=== PATIENT | male | born 1970 | race Caucasian/White ===

== ENCOUNTER 2018-03-26 17:38 | Inpatient (IN) ==
[2018-03-26] MEDS ORDERED: Propofol 1000 mg/100 ml Inj 1,000 MG/100 ML BOTTLE ONE (17:43)
[2018-03-26] MEDS ORDERED: Midazolam Inj 5 MG/ML 1 ML Vial ONE (17:54)
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
[2018-03-26 17:59] LABS: Baso # (Auto) 0.1 th/mm3 (0.0-0.2); Baso % (Auto) 0.9 % (0.0-2.0); Eos # (Auto) 0.2 th/mm3 (0.0-0.4); Eos % (Auto) 2.8 % (0.0-4.0); Hematocrit 42.1 % (39.0-51.0); Hemoglobin 14.8 gm/dL (13.0-17.0); Lymph # (Auto) 2.8 th/mm3 (1.0-4.8); Lymph % (Auto) 32.5 % (9.0-44.0); Mean Corpuscular HGB Conc 35.2 % (32.0-36.0); Mean Corpuscular Hemoglobin 33.7 pg (27.0-34.0); Mean Corpuscular Volume 95.8 fL (80.0-100.0); Mean Platelet Volume 7.5 fL (7.0-11.0); Mono # (Auto) 1.1 th/mm3 (0.0-0.9); Mono % (Auto) 12.6 % (0.0-8.0); Neut # (Auto) 4.4 th/mm3 (1.8-7.7); Neut % (Auto) 51.2 % (16.0-70.0); Platelet Count 205 th/mm3 (150-450); Red Blood Count 4.39 mil/mm3 (4.50-5.90); White Blood Count 8.6 th/mm3 (4.0-11.0)
[2018-03-26] MEDS ORDERED: PROPOFOL IV.SIG ONE (18:00)
[2018-03-26 18:07] LABS: Activated Partial Thrombo Time 25.7 sec (23.4-31.7); Prothrombin Time 10.2 sec (9.8-11.6)
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
[2018-03-26] MEDS ORDERED: HYDROmorphone PF Inj 1 MG/ML Ampul IV.PUSH PRN (18:26)
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
[2018-03-26] MEDS: fentaNYL 10 mcg/mL Premix Drip 2,500 MCG/250 ML BAG IV.SIG PRN (19:00)
[2018-03-26] MEDS: Sod Chloride 0.9% Inj 1,000 ML IV.CONT SCH (19:45)
[2018-03-26] MEDS ORDERED: Sodium Phosphate Inj 30 MMOL in Sodium Chlor 0.9% Inj 250 ML IV.SIG PRN (20:14)
[2018-03-26] MEDS ORDERED: Potassium Chloride 25 MEQ Effervescent Tablet PO PRN (20:14)
[2018-03-26] MEDS ORDERED: Magnesium Sulfate Inj 4 GM in Sodium Chlor 0.9% Inj 92 ML IV.SIG PRN (20:14)
[2018-03-26] MEDS ORDERED: Potassium Phosphate Inj 30 MMOL in Sodium Chlor 0.9% Inj 250 ML IV.SIG PRN (20:14)
[2018-03-26] MEDS ORDERED: Potassium Chlor 40 mEq Premix 40 MEQ/100 ML PIGGYBACK IV.SIG PRN ×2 (20:14)
[2018-03-26] MEDS ORDERED: Magnesium Sulfate Inj 2 GM in Sodium Chlor 0.9% Inj 96 ML IV.SIG PRN (20:14)
[2018-03-26] MEDS ORDERED: Potassium Chlor 20 mEq Premix 20 MEQ/100 ML PIGGYBACK IV.SIG PRN (20:14)
[2018-03-26] MEDS ORDERED: Magnesium Oxide 400 MG Tablet PO PRN (20:14)
[2018-03-26] MEDS ORDERED: Potassium Phosphate 500 MG Soluble Tablet PO PRN ×2 (20:14)
[2018-03-26] MEDS ORDERED: Senna/Docusate Sodium 8.6/50 MG Tablet PO SCH (21:00)
[2018-03-26] MEDS: Propofol 1000 mg/100 ml Inj 1,000 MG/100 ML BOTTLE IV.CONT PRN (21:05)
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
[2018-03-26] MEDS ORDERED: Bupivacaine/Epinephrine 0.5% Inj 50 ML Vial ONE (21:31)
[2018-03-26] MEDS ORDERED: Thrombin Topical Soln 5,000 UNIT Vial TOPICAL ONE (21:33)
[2018-03-26] MEDS ORDERED: Gelatin Size 100 Topical Foam ONE (21:33)
[2018-03-26] MEDS ORDERED: Clindamycin Inj 900 MG/6 ML Vial ONE ×2 (21:37→23:24)
[2018-03-26] MEDS: Famotidine 20 MG Tablet PO SCH (22:00)
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
--- NOTE | 2018-03-27 00:39 | P.PCN ---
Date of procedure: 03/27/18 Pre-op diagnosis: Open depressed left frontal parietal comminuted skull fracture Procedure: Left frontal parietal craniotomy for elevation of a comminuted open depressed skull fracture with evacuation of a small epidural hematoma and repair of a full -thickness scalp laceration 5 cm in length Anesthesia: TIM Surgeon: Ike Beltran Estimated blood loss (mL): 250 Pathology: none sent Condition: stable Disposition: ICU
[2018-03-27] MEDS ORDERED: Bisacodyl 10 MG Supp RECTAL PRN (00:42)
[2018-03-27] MEDS ORDERED: fentaNYL Citrate Inj 100 MCG/2 ML Ampul ONE (00:46)
[2018-03-27 01:35] LABS: Hematocrit 34.4 % (39.0-51.0); Hemoglobin 12.2 gm/dL (13.0-17.0); Mean Corpuscular HGB Conc 35.6 % (32.0-36.0); Mean Corpuscular Hemoglobin 33.5 pg (27.0-34.0); Mean Corpuscular Volume 94.1 fL (80.0-100.0); Mean Platelet Volume 7.5 fL (7.0-11.0); Platelet Count 171 th/mm3 (150-450); Red Blood Count 3.65 mil/mm3 (4.50-5.90); Red Cell Distribution Width 12.7 % (11.6-17.2); White Blood Count 10.2 th/mm3 (4.0-11.0)
[2018-03-27 01:40] LABS: ABG Base Excess -1.9 mmol/L (-2-2); ABG PCO2 39 mmHg (38-42); ABG PO2 133 mmHg (61-120)
[2018-03-27] MEDS: Oral Hygiene Kit OROPHARYNG SCH ×4 (01:56→17:42)
[2018-03-27] MEDS: ceFAZolin 1 GM Premix Inj 1 GM/50 ML PIGGYBACK IV.SIG SCH ×3 (01:56→17:42)
[2018-03-27 02:02] LABS: Calcium 7.3 mg/dL (8.5-10.1); Carbon Dioxide 25.7 meq/L (21.0-32.0); Potassium 4.3 meq/L (3.5-5.1)
[2018-03-27 02:08] LABS: Albumin 3.4 g/dL (3.4-5.0); Calcium-Albumin Corrected 7.8 mg/dL (8.5-10.1)
[2018-03-27] MEDS ORDERED: Chlorhexidine Gluconate 2% 1 Pack (2 Cloths) TOPICAL PRN (04:00)
[2018-03-27] MEDS: Chlorhexidine Gluconate 2% 1 Pack (2 Cloths) TOPICAL SCH (04:46)
[2018-03-27] MEDS: Sod Chloride 0.9% Inj 1,000 ML IV.CONT SCH ×2 (04:47→17:42)
[2018-03-27] MEDS: Propofol 1000 mg/100 ml Inj 1,000 MG/100 ML BOTTLE IV.CONT PRN (04:48)
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
[2018-03-27 05:42] LABS: ABG PCO2 44 mmHg (38-42); ABG PO2 90 mmHg (61-120)
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
[2018-03-27 06:08] LABS: Baso % (Auto) 0.4 % (0.0-2.0); Eos # (Auto) 0.1 th/mm3 (0.0-0.4); Eos % (Auto) 1.5 % (0.0-4.0); Hematocrit 34.3 % (39.0-51.0); Hemoglobin 11.9 gm/dL (13.0-17.0); Lymph % (Auto) 10.3 % (9.0-44.0); Mean Corpuscular HGB Conc 34.8 % (32.0-36.0); Mean Corpuscular Hemoglobin 33.2 pg (27.0-34.0); Mean Corpuscular Volume 95.4 fL (80.0-100.0); Mean Platelet Volume 8.3 fL (7.0-11.0); Mono # (Auto) 1.1 th/mm3 (0.0-0.9); Mono % (Auto) 11.4 % (0.0-8.0); Neut # (Auto) 7.5 th/mm3 (1.8-7.7); Neut % (Auto) 76.4 % (16.0-70.0); Platelet Count 161 th/mm3 (150-450); Red Cell Distribution Width 12.9 % (11.6-17.2); White Blood Count 9.8 th/mm3 (4.0-11.0)
[2018-03-27 06:15] LABS: Albumin 3.3 g/dL (3.4-5.0); Anion Gap 6 meq/L (5-15); Aspartate Aminotransferase 28 U/L (15-37); Blood Urea Nitrogen 8 mg/dL (7-18); Calcium 7.6 mg/dL (8.5-10.1); Carbon Dioxide 25.3 meq/L (21.0-32.0); Chloride 108 meq/L (98-107); Glomerular Filtration Rate 87 mL/min (>89); Glucose,Random 90 mg/dL (74-106); Potassium 4.1 meq/L (3.5-5.1); Sodium 139 meq/L (136-145)
[2018-03-27 06:16] LABS: Alanine Aminotransferase 24 U/L (12-78)
[2018-03-27 06:18] LABS: Alkaline Phosphatase 52 U/L (45-117); Total Protein 6.1 g/dL (6.4-8.2)
[2018-03-27] MEDS: fentaNYL 10 mcg/mL Premix Drip 2,500 MCG/250 ML BAG IV.SIG PRN ×2 (06:38→21:15)
[2018-03-27] MEDS ORDERED: Midazolam Inj 5 MG/ML 1 ML Vial IV.PUSH ONE (08:30)
[2018-03-27] MEDS: Senna/Docusate Sodium 8.6/50 MG Tablet PO SCH ×2 (08:46→20:24)
[2018-03-27] MEDS: Famotidine 20 MG Tablet PO SCH ×2 (08:46→20:23)
[2018-03-27] MEDS: Chlorhexidine 0.12% Oral Kit 15 ML UDC OROPHARYNG SCH ×2 (08:47→20:24)
[2018-03-27] MEDS ORDERED: Albumin Human 5% Inj 500 ML IV.SIG ONE (09:00)
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
[2018-03-27] MEDS: Midazolam 100 MG/100 ML Inj 100 MG/100 ML BAG IV.CONT PRN (09:30)
[2018-03-27] MEDS ORDERED: Sod Chloride 0.9% Inj 1,000 ML IV.SIG ONE ×2 (09:38→11:00)
[2018-03-27] MEDS: Multivitamin Inj 10 ML, Thiamine Inj 100 MG, Folic Acid Inj 1 MG in Sodium Chlor 0.9% I... IV.SIG SCH (12:16)
--- NOTE | 2018-03-27 12:30 | P.PNNS ---
Subjective Interval history: The patient is stable following left frontal parietal craniotomy for elevation of a depressed skull fracture and repair by scalp laceration Physical Exam Vital signs: Vital Signs 03/26/18 18:32 03/26/18 18:50 03/26/18 19:42 Temperature 98.6 F Pulse Rate 88 78 Respiratory Rate 27 H 16 Blood Pressure Pulse Oximetry 100 100 03/26/18 19:45 03/26/18 19:50 03/26/18 19:55 Temperature 98.6 F 98.8 F 98.8 F Pulse Rate 76 76 77 Respiratory Rate 16 16 16 Blood Pressure 146/94 H 143/93 H 142/96 H Pulse Oximetry 100 100 100 03/26/18 20:00 03/26/18 20:05 03/26/18 20:10 Temperature 98.8 F 98.8 F Pulse Rate 76 76 76 Respiratory Rate 16 16 16 Blood Pressure 143/96 H 141/94 H 139/94 H Pulse Oximetry 100 100 100 03/26/18 20:15 03/26/18 20:20 03/26/18 20:25 Temperature 98.8 F 98.8 F 98.8 F Pulse Rate 75 74 73 Respiratory Rate 16 16 16 Blood Pressure 141/95 H 139/94 H 149/96 H Pulse Oximetry 100 100 100 03/26/18 20:29 03/26/18 20:30 03/26/18 20:35 Temperature Pulse Rate 74 76 Respiratory Rate 16 16 16 Blood Pressure 142/96 H 140/89 Pulse Oximetry 100 100 100 03/26/18 20:40 03/26/18 20:45 03/26/18 20:50 Temperature Pulse Rate 77 76 75 Respiratory Rate 16 16 16 Blood Pressure 137/88 135/90 136/87 Pulse Oximetry 100 100 100 03/26/18 20:55 03/26/18 21:00 03/26/18 21:05 Temperature 98.8 F 98.8 F Pulse Rate 75 75 75 Respiratory Rate 16 16 16 Blood Pressure 131/87 131/88 134/89 Pulse Oximetry 100 100 100 03/26/18 21:10 03/26/18 21:15 03/27/18 00:27 Temperature Pulse Rate 75 94 H 86 Respiratory Rate Blood Pressure 136/86 175/101 H Pulse Oximetry 100 100 100 03/27/18 00:30 03/27/18 00:45 03/27/18 00:54 Temperature Pulse Rate 84 93 H 95 H Respiratory Rate 16 16 Blood Pressure 118/72 Pulse Oximetry 100 100 100 03/27/18 01:00 03/27/18 01:15 03/27/18 01:30 Temperature 100.8 F H Pulse Rate 95 H 95 H 94 H Respiratory Rate 16 16 16 Blood Pressure 120/73 123/80 Pulse Oximetry 100 100 100 03/27/18 01:45 03/27/18 02:00 03/27/18 02:30 Temperature 100.8 F H 100.6 F H Pulse Rate 97 H 96 H 93 H Respiratory Rate 16 16 16 Blood Pressure 106/66 106/65 Pulse Oximetry 99 98 100 03/27/18 03:00 03/27/18 03:30 03/27/18 03:36 Temperature 100.8 F H 100.8 F H Pulse Rate 90 98 H Respiratory Rate 16 32 H 18 Blood Pressure 108/69 142/80 H Pulse Oximetry 100 98 100 03/27/18 03:39 03/27/18 04:00 03/27/18 04:30 Temperature 100.9 F H 100.9 F H Pulse Rate 100 H 101 H 97 H Respiratory Rate 19 17 16 Blood Pressure 111/69 109/62 Pulse Oximetry 100 100 03/27/18 05:00 03/27/18 05:30 03/27/18 06:00 Temperature 100.6 F H 100.4 F H Pulse Rate 95 H 92 H 92 H Respiratory Rate 16 16 98 H Blood Pressure 102/66 106/62 Pulse Oximetry 100 100 100 03/27/18 06:01 03/27/18 06:31 03/27/18 07:00 Temperature 100.4 F H 100.2 F H Pulse Rate 87 88 79 Respiratory Rate 16 16 Blood Pressure 105/66 92/58 L Pulse Oximetry 100 99 100 03/27/18 07:01 03/27/18 07:15 03/27/18 07:31 Temperature 100.2 F H Pulse Rate 78 96 H Respiratory Rate 16 16 Blood Pressure 96/54 L 124/66 Pulse Oximetry 100 100 97 03/27/18 07:44 03/27/18 08:00 03/27/18 08:01 Temperature 100.4 F H Pulse Rate 91 H 89 87 Respiratory Rate 16 16 Blood Pressure 103/58 L Pulse Oximetry 100 100 03/27/18 08:06 12/16/18 08:08 03/27/18 08:31 Temperature Pulse Rate 87 105 H Respiratory Rate 16 16 16 Blood Pressure 94/50 L Pulse Oximetry 100 95 03/27/18 09:00 03/27/18 09:01 03/27/18 09:31 Temperature 100.0 F H 100.0 F H 100.0 F H Pulse Rate 88 87 98 H Respiratory Rate 16 16 16 Blood Pressure 97/59 L 107/57 L Pulse Oximetry 98 99 96 03/27/18 10:00 03/27/18 10:01 03/27/18 10:31 Temperature 99.7 F H 99.7 F H 99.5 F Pulse Rate 89 89 84 Respiratory Rate 16 16 16 Blood Pressure 107/56 L 98/55 L Pulse Oximetry 100 100 99 03/27/18 11:00 03/27/18 11:28 Temperature 99.5 F Pulse Rate 79 Respiratory Rate 16 16 Blood Pressure Pulse Oximetry 100 100 Intake & Output 03/26/18 03/27/18 03/27/18 18:59 06:59 18:59 Intake Total 2209 / 2209 2855 / 2855 Output Total 860 / 860 Balance 1349 / 1349 2855 / 2855 Weight 80 kg 86 kg Intake: IV 1209 / 1209 2855 / 2855 Diprivan 1000 mg/100 ml Inj 1, 100 / 100 100 / 100 000 mg In 100 ml @ 5 MCG/KG/MIN 2.4 mls/hr IV.CONT TITRATE PRN Rx#:[id number] NS Inj 1,000 ML @ 100 mls/hr IV 700 / 700 .CONT .Q10H [facility] Rx#:[id number] Alburx 5% Inj 500 ML @ 250 mls/ 500 / 500 hr IV.SIG ONCE ONE Rx#:[id number] Diprivan 1000 mg/100 ml Inj 40 4 / 4 mg In 4 ml @ 120 mls/hr IV.SIG ONCE ONE Rx#:[id number] NS Inj 1,000 ML @ Wide Open IV. 1999 SIG BOLUS ONE Rx#:[id number] Ancef 1 GM Premix Inj 1 gm In 50 / 50 50 / 50 50 ml @ 150 mls/hr IV.SIG Q8H [facility] Rx#:[id number] fentaNYL 10 mcg/mL Premix Drip 250 / 250 2,500 mcg In 250 ml @ 50 MCG/HR 5 mls/hr IV.SIG TITRATE PRN Rx #:[id number] Keppra Inj 500 MG In NS Inj 100 105 / 105 105 / 105 ML @ 400 mls/hr IV.SIG Q12H [facility] Rx#:[id number] Anesthesia Amount 1000 / 1000 Output: Estimated Blood Loss 200 / 200 Urine Amount (Catheter) 400 / 400 Indwelling Urethral Catheter 400 / 400 Gastric Drainage 150 / 150 Orogastric Tube 150 / 150 Wound Drainage 110 / 110 # 1 Left Head 110 / 110 Other: Weight On Admission 80 kg - Routine Neurological Exam The patient is lying in bed. He is intubated on a ventilator with spontaneous respirations. He has been sedated for agitation. According to the nurse he opens his eyes and follow some commands. He has attempted to sit up and get out of bed. His pupils are equally round and reactive to light. His gaze is conjugate. Corneal reflexes are present bilaterally. Gag reflex is present. Best motor response finds him to move all 4 extremities spontaneously in a noxious stimuli. The dressing is dry and the subgaleal drain remains in place. Follow-up postoperative CT scan of the head is stable there are postoperative changes. There is increase in the left frontal hemorrhagic brain contusion or small intracerebral hemorrhage with some mild surrounding edema. There is some subarachnoid hemorrhage noted as well as intraventricular hemorrhage noted. There is no sign of subdural hematoma or epidural hematoma. There is no hydrocephalus. 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 Code(s): S02.91XB - Unspecified fracture of skull, initial encounter for open fracture; S06.9X9A - Unspecified intracranial injury with loss of consciousness of unspecified duration, initial encounter Status: Acute Qualifiers: Encounter type: initial encounter Qualified Code(s): S02.91XB - Unspecified fracture of skull, initial encounter for open fracture; S06.9X9A - Unspecified intracranial injury with loss of consciousness of unspecified duration, initial encounter - Plan At this point the patient can be weaned from the ventilator as tolerated and extubated when deemed appropriate by the trauma team. He certainly require aggressive rehabilitation and should be mobilized when able. I would continue the present management. The patient will be managed by the trauma service as per TBI guidelines and protocol. I would continue her Keppra antiseizure prophylaxis for 7 days and if no seizures postoperatively I would discontinue the Keppra. I would begin VTE pharmacological prophylaxis, if it has not already been initiated. I discussed his clinical situation and hospital course with his significant other at the bedside. Neurosurgery will follow.
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
[2018-03-27] MEDS: Enoxaparin Inj 40 MG/0.4 ML Syringe SQ SCH (14:00)
[2018-03-28] MEDS: Oral Hygiene Kit OROPHARYNG SCH ×4 (00:36→19:47)
[2018-03-28] MEDS: Sod Chloride 0.9% Inj 1,000 ML IV.CONT SCH ×2 (00:37→17:51)
[2018-03-28] MEDS: Midazolam 100 MG/100 ML Inj 100 MG/100 ML BAG IV.CONT PRN (00:42)
[2018-03-28 04:02] LABS: Baso % (Auto) 0.3 % (0.0-2.0); Eos # (Auto) 0.1 th/mm3 (0.0-0.4); Eos % (Auto) 0.9 % (0.0-4.0); Hematocrit 24.8 % (39.0-51.0); Hemoglobin 8.7 gm/dL (13.0-17.0); Lymph % (Auto) 14.9 % (9.0-44.0); Mean Corpuscular HGB Conc 35.2 % (32.0-36.0); Mean Corpuscular Hemoglobin 33.9 pg (27.0-34.0); Mean Corpuscular Volume 96.4 fL (80.0-100.0); Mono # (Auto) 0.9 th/mm3 (0.0-0.9); Mono % (Auto) 13.2 % (0.0-8.0); Neut # (Auto) 4.8 th/mm3 (1.8-7.7); Neut % (Auto) 70.7 % (16.0-70.0); Platelet Count 125 th/mm3 (150-450); Red Blood Count 2.57 mil/mm3 (4.50-5.90); Red Cell Distribution Width 13.1 % (11.6-17.2); White Blood Count 6.9 th/mm3 (4.0-11.0)
--- NOTE | 2018-03-28 04:31 | XR ---
EXAM DATE: 03/28/2018 4:06 AM EST AGE/SEX: 48 years / Male INDICATIONS: Shortness of breath. CLINICAL DATA: This is the patient's subsequent encounter. Patient reports that signs and symptoms h ave been present for 2 days and indicates a pain score of Nonresponsive. MEDICAL/SURGICAL HISTORY: . Smoker. Left frontoparietal comminuted fracture. Craniotomy. COMPARISON: [facility] [place]ST 1V SINGLE AP, 03/27/2018. . FINDINGS: ET tube tip well above the rajan. Gastric tube traverses the [id number]. There are some patchy ar eas of opacity in the medial left lower lobe with loss of delineation of bronchopulmonary markings bu t with good delineation of the left hemidiaphragm. The right lung is clear. No blunting of the costop hrenic angles. CONCLUSION: Interval development of some patchy areas of nonconsolidative infiltrate medial left lower lung. Electronically signed by: Reinier Menezes MD Board Certified Radiologist 03/28/2018 4:29 AM EST
[2018-03-28 04:35] LABS: Alanine Aminotransferase 17 U/L (12-78); Albumin 2.9 g/dL (3.4-5.0); Alkaline Phosphatase 41 U/L (45-117); Anion Gap 12 meq/L (5-15); Aspartate Aminotransferase 21 U/L (15-37); Blood Urea Nitrogen 6 mg/dL (7-18); Calcium 7.4 mg/dL (8.5-10.1); Carbon Dioxide 19.2 meq/L (21.0-32.0); Chloride 113 meq/L (98-107); Glomerular Filtration Rate Greater Than 89 mL/min (>89); Glucose,Random 77 mg/dL (74-106); Potassium 3.7 meq/L (3.5-5.1); Sodium 144 meq/L (136-145); Total Protein 5.4 g/dL (6.4-8.2)
[2018-03-28] MEDS: Chlorhexidine Gluconate 2% 1 Pack (2 Cloths) TOPICAL SCH (04:42)
[2018-03-28 05:35] LABS: ABG PCO2 31 mmHg (38-42); ABG PO2 116 mmHg (61-120)
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
[2018-03-28] MEDS: Famotidine 20 MG Tablet PO SCH ×2 (11:32→20:00)
[2018-03-28] MEDS: Senna/Docusate Sodium 8.6/50 MG Tablet PO SCH ×2 (11:32→20:00)
[2018-03-28] MEDS: Chlorhexidine 0.12% Oral Kit 15 ML UDC OROPHARYNG SCH ×2 (11:33→19:53)
[2018-03-28] MEDS: Enoxaparin Inj 40 MG/0.4 ML Syringe SQ SCH (11:33)
[2018-03-28] MEDS: Dexmedetomidine Inj 200 MCG in Sodium Chlor 0.9% Inj 48 ML IV.CONT PRN ×4 (11:34→23:57)
[2018-03-28] MEDS: Multivitamin Inj 10 ML, Thiamine Inj 100 MG, Folic Acid Inj 1 MG in Sodium Chlor 0.9% I... IV.SIG SCH (11:45)
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
--- NOTE | 2018-03-28 18:32 | P.PNNS ---
Subjective Interval history: The patient is stable postoperative day #1. He remains intubated on a ventilator and off sedation is quite agitated. Physical Exam Vital signs: Vital Signs 03/27/18 18:31 03/27/18 19:00 03/27/18 19:01 Temperature 100.4 F H 100.4 F H 100.4 F H Pulse Rate 77 76 76 Respiratory Rate 16 16 16 Blood Pressure 111/58 L 110/60 Pulse Oximetry 100 100 100 03/27/18 19:31 03/27/18 20:00 03/27/18 20:01 Temperature 100.4 F H 100.6 F H Pulse Rate 79 85 85 Respiratory Rate 16 16 16 Blood Pressure 101/57 L 101/57 L Pulse Oximetry 100 100 100 03/27/18 20:31 03/27/18 20:48 03/27/18 20:49 Temperature Pulse Rate 82 79 Respiratory Rate 16 16 16 Blood Pressure 101/59 L Pulse Oximetry 100 98 03/27/18 21:00 03/27/18 21:01 03/27/18 21:31 Temperature 100.6 F H 100.4 F H Pulse Rate 74 76 73 Respiratory Rate 16 16 16 Blood Pressure 105/57 L 111/61 Pulse Oximetry 100 100 100 03/27/18 22:00 03/27/18 22:01 03/27/18 22:31 Temperature 100.6 F H 100.6 F H Pulse Rate 74 74 75 Respiratory Rate 16 16 16 Blood Pressure 107/60 107/60 Pulse Oximetry 100 100 100 03/27/18 23:00 03/27/18 23:01 03/27/18 23:31 Temperature 100.6 F H 100.6 F H Pulse Rate 74 74 75 Respiratory Rate 16 16 16 Blood Pressure 113/62 108/59 L Pulse Oximetry 100 100 100 03/27/18 23:35 03/28/18 00:00 03/28/18 00:01 Temperature 100.6 F H Pulse Rate 76 76 Respiratory Rate 16 16 16 Blood Pressure 107/59 L Pulse Oximetry 100 100 100 03/28/18 00:31 18 01:00 03/28/18 01:01 Temperature 100.8 F H Pulse Rate 73 75 75 Respiratory Rate 16 16 16 Blood Pressure 105/57 L 104/57 L Pulse Oximetry 100 99 99 03/28/18 01:31 03/28/18 02:00 03/28/18 02:01 Temperature 100.4 F H Pulse Rate 74 72 72 Respiratory Rate 16 16 16 Blood Pressure 112/59 L 111/61 Pulse Oximetry 100 100 100 03/28/18 02:31 03/28/18 03:00 03/28/18 03:01 Temperature 100.0 F H Pulse Rate 73 72 73 Respiratory Rate 16 16 16 Blood Pressure 105/59 L 106/59 L Pulse Oximetry 100 100 100 03/28/18 03:31 03/28/18 03:47 03/28/18 03:48 Temperature Pulse Rate 71 71 Respiratory Rate 16 16 16 Blood Pressure 110/60 Pulse Oximetry 100 100 03/28/18 04:00 03/28/18 04:01 03/28/18 04:31 Temperature 99.9 F H Pulse Rate 74 73 74 Respiratory Rate 20 20 19 Blood Pressure 105/59 L 106/56 L Pulse Oximetry 100 100 100 03/28/18 05:00 03/28/18 05:01 03/28/18 06:00 Temperature 99.7 F H 99.1 F Pulse Rate 71 73 70 Respiratory Rate 20 19 19 Blood Pressure 106/56 L Pulse Oximetry 100 100 100 03/28/18 07:00 03/28/18 08:00 03/28/18 09:00 Temperature 99.1 F 99.0 F 99.0 F Pulse Rate 70 68 67 Respiratory Rate 20 19 20 Blood Pressure Pulse Oximetry 100 100 100 03/28/18 10:00 03/28/18 10:04 03/28/18 11:00 Temperature 99.5 F 99.5 F Pulse Rate 73 73 72 Respiratory Rate 22 17 16 Blood Pressure Pulse Oximetry 100 100 100 03/28/18 12:00 03/28/18 12:25 03/28/18 13:00 Temperature 99.3 F 100.2 F H Pulse Rate 70 96 H Respiratory Rate 16 18 15 Blood Pressure Pulse Oximetry 100 100 94 L 03/28/18 14:00 03/28/18 15:00 03/28/18 15:33 Temperature 100.2 F H 100.0 F H Pulse Rate 75 75 78 Respiratory Rate 20 16 17 Blood Pressure Pulse Oximetry 95 98 98 03/28/18 16:00 03/28/18 17:00 03/28/18 18:00 Temperature 100.8 F H 100.8 F H 102.0 F H Pulse Rate 76 71 72 Respiratory Rate 18 12 13 Blood Pressure Pulse Oximetry 100 99 98 Intake & Output 03/27/18 03/28/18 03/28/18 18:59 06:59 18:59 Intake Total 4066.2 / 4066.2 2445 / 2445 255 / 255 Output Total 1150 / 1150 1100 / 1100 1240 / 1240 Balance 2916.2 / 2916.2 1345 / 1345 -985 / -985 Weight 88.8 kg Intake: IV 4066.2 / 4066.2 2445 / 2445 155 / 155 Precedex Inj 200 MCG In NS Inj 50 / 50 48 ML @ 0.2 MCG/KG/HR 4.44 mls/ hr IV.CONT TITRATE PRN Rx#: [id number] Versed Inj 100 mg In 100 ml @ 2 100 / 100 MG/HR 2 mls/hr IV.CONT TITRATE PRN Rx#:[id number] Diprivan 1000 mg/100 ml Inj 1, 100 / 100 000 mg In 100 ml @ 5 MCG/KG/MIN 2.4 mls/hr IV.CONT TITRATE PRN Rx#:[id number] NS Inj 1,000 ML @ 100 mls/hr IV 650 / 650 1999 .CONT .Q10H [facility] Rx#:[id number] Alburx 5% Inj 500 ML @ 250 mls/ 500 / 500 hr IV.SIG ONCE ONE Rx#:[id number] MVI-12 Inj 10 ML Thiamine Inj 511.2 / 511.2 100 MG Folvite Inj 1 MG In NS Inj 500 ML @ 127.8 mls/hr IV. SIG DAILY [facility] Rx#:[id number] NS Inj 1,000 ML @ Wide Open IV. 1999 SIG BOLUS ONE Rx#:[id number] Ancef 1 GM Premix Inj 1 gm In 100 / 100 50 ml @ 150 mls/hr IV.SIG Q8H [facility] Rx#:[id number] fentaNYL 10 mcg/mL Premix Drip 240 / 240 0 / 0 2,500 mcg In 250 ml @ 50 MCG/HR 5 mls/hr IV.SIG TITRATE PRN Rx #:[id number] Keppra Inj 500 MG In NS Inj 100 105 / 105 105 / 105 105 / 105 ML @ 400 mls/hr IV.SIG Q12H [facility] Rx#:[id number] Water Bolus Amount 100 / 100 Output: Urine Amount (Catheter) 1000 / 1000 900 / 900 850 / 850 Indwelling Urethral Catheter 1000 / 1000 900 / 900 850 / 850 Gastric Drainage 50 / 50 150 / 150 350 / 350 Orogastric Tube 50 / 50 150 / 150 350 / 350 Wound Drainage 100 / 100 50 / 50 40 / 40 # 1 Left Head 100 / 100 50 / 50 40 / 40 Other: # Bowel Movements 0 - Routine Neurological Exam The patient remains intubated on a ventilator with spontaneous respirations. He is sedated for agitation and as sedation is weaned he becomes more responsive. He opens his eyes. He correctly follows commands and moves all 4 extremities. Pupils are equally round reactive light. Corneal reflexes are present. Gag reflex is present. Best motor response finds him to withdraw all 4 extremities spontaneously in a noxious stimuli. The dressing remains dry and intact. 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 Code(s): S02.91XB - Unspecified fracture of skull, initial encounter for open fracture; S06.9X9A - Unspecified intracranial injury with loss of consciousness of unspecified duration, initial encounter Status: Acute Qualifiers: Encounter type: initial encounter Qualified Code(s): S02.91XB - Unspecified fracture of skull, initial encounter for open fracture; S06.9X9A - Unspecified intracranial injury with loss of consciousness of unspecified duration, initial encounter - Plan March 27, 2018 At this point the patient can be weaned from the ventilator as tolerated and extubated when deemed appropriate by the trauma team. He certainly require aggressive rehabilitation and should be mobilized when able. I would continue the present management. The patient will be managed by the trauma service as per TBI guidelines and protocol. I would continue her Keppra antiseizure prophylaxis for 7 days and if no seizures postoperatively I would discontinue the Keppra. I would begin VTE pharmacological prophylaxis, if it has not already been initiated. I discussed his clinical situation and hospital course with his significant other at the bedside. Neurosurgery will follow. March 28, 2018 The patient is essentially stable one day following a left frontal parietal craniotomy for elevation of a depressed skull fracture and repair of a scalp laceration. The critical care service is attempting to wean the patient from the ventilator slowly. We will continue the present management and the patient will require mobilization and an extensive course of rehabilitation. Neurosurgery will follow.
[2018-03-29] MEDS: Oral Hygiene Kit OROPHARYNG SCH ×4 (00:57→18:13)
--- NOTE | 2018-03-29 04:05 | XR ---
EXAM DATE: 03/29/2018 3:52 AM EST AGE/SEX: 48 years / Male INDICATIONS: Respiratory distress. CLINICAL DATA: This is the patient's subsequent encounter. Patient reports that signs and symptoms h ave been present for 3 days and indicates a pain score of Nonresponsive. MEDICAL/SURGICAL HISTORY: . Smoker. Left frontoparietal fracture. Craniotomy. COMPARISON: [facility] – [place], CHEST 1V SINGLE AP, 03/28/2018. . FINDINGS: ET tube tip well above the rajan. Gastric tube tip and side-port project within the stomach. Increas ing consolidation in the left lower lung with loss of delineation of the medial one third of the left hemidiaphragm and air bronchograms in the retrocardiac region. The right lung is clear. CONCLUSION: Increasing consolidation in the left lower lobe. Electronically signed by: Reinier Menezes MD Board Certified Radiologist 03/29/2018 4:04 AM EST
[2018-03-29] MEDS: fentaNYL 10 mcg/mL Premix Drip 2,500 MCG/250 ML BAG IV.SIG PRN (05:20)
[2018-03-29] MEDS: Dexmedetomidine Inj 200 MCG in Sodium Chlor 0.9% Inj 48 ML IV.CONT PRN (05:22)
[2018-03-29 05:51] LABS: ABG Base Excess -3.2 mmol/L (-2-2); ABG PCO2 40 mmHg (38-42); ABG PO2 124 mmHg (61-120)
[2018-03-29 06:01] LABS: Baso % (Auto) 0.5 % (0.0-2.0); Eos # (Auto) 0.1 th/mm3 (0.0-0.4); Hematocrit 28.8 % (39.0-51.0); Hemoglobin 9.9 gm/dL (13.0-17.0); Lymph # (Auto) 0.8 th/mm3 (1.0-4.8); Lymph % (Auto) 16.2 % (9.0-44.0); Mean Corpuscular HGB Conc 34.4 % (32.0-36.0); Mean Corpuscular Hemoglobin 33.4 pg (27.0-34.0); Mean Corpuscular Volume 97.2 fL (80.0-100.0); Mean Platelet Volume 7.7 fL (7.0-11.0); Mono # (Auto) 0.6 th/mm3 (0.0-0.9); Mono % (Auto) 11.5 % (0.0-8.0); Neut # (Auto) 3.4 th/mm3 (1.8-7.7); Neut % (Auto) 69.8 % (16.0-70.0); Platelet Count 118 th/mm3 (150-450); Red Blood Count 2.97 mil/mm3 (4.50-5.90); White Blood Count 4.9 th/mm3 (4.0-11.0)
[2018-03-29] MEDS: Chlorhexidine Gluconate 2% 1 Pack (2 Cloths) TOPICAL SCH (06:29)
[2018-03-29] MEDS: Sod Chloride 0.9% Inj 1,000 ML IV.CONT SCH (06:33)
[2018-03-29 06:35] LABS: Alanine Aminotransferase 18 U/L (12-78); Albumin 2.5 g/dL (3.4-5.0); Anion Gap 9 meq/L (5-15); Aspartate Aminotransferase 31 U/L (15-37); Blood Urea Nitrogen 5 mg/dL (7-18); Calcium 7.6 mg/dL (8.5-10.1); Chloride 112 meq/L (98-107); Glomerular Filtration Rate Greater Than 89 mL/min (>89); Glucose,Random 124 mg/dL (74-106); Potassium 3.7 meq/L (3.5-5.1); Sodium 144 meq/L (136-145)
[2018-03-29 06:38] LABS: Alkaline Phosphatase 41 U/L (45-117); Total Protein 5.8 g/dL (6.4-8.2)
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
[2018-03-29] MEDS: Senna/Docusate Sodium 8.6/50 MG Tablet PO SCH ×2 (08:47→20:20)
[2018-03-29] MEDS: Enoxaparin Inj 40 MG/0.4 ML Syringe SQ SCH (08:47)
[2018-03-29] MEDS: Famotidine 20 MG Tablet PO SCH ×2 (08:47→20:19)
[2018-03-29] MEDS: Chlorhexidine 0.12% Oral Kit 15 ML UDC OROPHARYNG SCH ×2 (08:48→21:48)
[2018-03-29] MEDS: Multivitamin Inj 10 ML, Thiamine Inj 100 MG, Folic Acid Inj 1 MG in Sodium Chlor 0.9% I... IV.SIG SCH (08:55)
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
--- NOTE | 2018-03-29 11:58 | CT ---
EXAM DATE: 03/29/2018 11:52 AM EST AGE/SEX: 48 years / Male INDICATIONS: Evaluate head injury CLINICAL DATA: This is the patient's subsequent encounter. Patient reports that signs and symptoms h ave been present for 3 days and indicates a pain score of Nonresponsive. MEDICAL/SURGICAL HISTORY: None. None. RADIATION DOSE: 41.75 CTDI (mGy) [place] [facility] [place]. . TECHNIQUE: CT of the head without contrast. Using automated exposure control and adjustment of the mA and/or kV according to patient size, radiation dose was kept as low as reasonably achievable to ob tain optimal diagnostic quality images. DICOM format image data is available electronically for revi ew and comparison. FINDINGS: Cerebrum: There is a stable left frontal acute parenchymal bleed measuring 14 mm. Minimal surroundin g edema is noted on today's examination. Minimal acute subarachnoid hemorrhage is noted within left f rontal region also and is unchanged. No midline shift is noted. The previously noted intraventricular hemorrhage within the left lateral ventricle is no longer identified. Mild subcortical white matter edema is noted within the right parietal lobe. Posterior Fossa: The cerebellum and brainstem are intact. The 4th ventricle is midline. The cerebe llopontine angle is unremarkable. Extracranial: The visualized portion of the orbits is intact. Skull: The patient is status post left frontal craniotomy. CONCLUSION: 1. Stable left frontal acute parenchymal bleed measuring 14 mm. Minimal surrounding edema is noted o n today's examination. 2. Minimal acute subarachnoid hemorrhage is noted within left frontal region also and is unchanged. No midline shift is noted. 3. The previously noted intraventricular hemorrhage within the left lateral ventricle is no longer i dentified. 4. Mild subcortical white matter edema is noted within the right parietal lobe. . Electronically signed by: Manuel Eaton MD Board Certified Radiologist 03/29/2018 11:56 AM EST
[2018-03-29] MEDS ORDERED: Haloperidol Inj 5 MG/ML Ampul IM ONE (12:45)
[2018-03-29] MEDS ORDERED: LORazepam 1 MG Tablet PO PRN (16:28)
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
[2018-03-29] MEDS: QUEtiapine 100 MG Tablet PO SCH ×2 (18:13→22:03)
[2018-03-29] MEDS: Thiamine Inj 100 MG in Sodium Chlor 0.9% Inj 100 ML IV.SIG SCH (19:33)
--- NOTE | 2018-03-30 05:37 | XR ---
EXAM DATE: 03/30/2018 5:30 AM EST AGE/SEX: 48 years / Male INDICATIONS: Respiratory distress. CLINICAL DATA: This is the patient's subsequent encounter. Patient reports that signs and symptoms h ave been present for 4 - 6 days and indicates a pain score of Nonresponsive. MEDICAL/SURGICAL HISTORY: . Smoker. Left frontoparietal fracture. Craniotomy. COMPARISON: [facility] [place]ST 1V SINGLE AP, 03/29/2018. . FINDINGS: A single AP view of the chest demonstrates diminished lung volumes with minimal density in the right midlung. Heart normal in size. The cardiomediastinal contours are unremarkable. Osseous structures a re intact. CONCLUSION: Minimal density in the right midlung. Electronically signed by: Tomás Chi MD Board Certified Radiologist 03/30/2018 5:36 AM EST
[2018-03-30 05:41] LABS: Alanine Aminotransferase 29 U/L (12-78); Albumin 2.9 g/dL (3.4-5.0); Alkaline Phosphatase 50 U/L (45-117); Anion Gap 12 meq/L (5-15); Aspartate Aminotransferase 73 U/L (15-37); Blood Urea Nitrogen 2 mg/dL (7-18); Calcium 7.8 mg/dL (8.5-10.1); Carbon Dioxide 25.1 meq/L (21.0-32.0); Chloride 103 meq/L (98-107); Glomerular Filtration Rate Greater Than 89 mL/min (>89); Glucose,Random 89 mg/dL (74-106); Sodium 140 meq/L (136-145); Total Protein 6.6 g/dL (6.4-8.2)
[2018-03-30 05:47] LABS: Potassium 2.8 meq/L (3.5-5.1)
[2018-03-30] MEDS: Potassium Chlor 20 mEq Premix 20 MEQ/100 ML PIGGYBACK IV.SIG PRN ×4 (06:18→13:29)
[2018-03-30 07:07] LABS: Baso % (Auto) 0.5 % (0.0-2.0); Eos # (Auto) 0.1 th/mm3 (0.0-0.4); Eos % (Auto) 1.2 % (0.0-4.0); Hematocrit 28.6 % (39.0-51.0); Hemoglobin 10.1 gm/dL (13.0-17.0); Lymph # (Auto) 1.1 th/mm3 (1.0-4.8); Lymph % (Auto) 15.1 % (9.0-44.0); Mean Corpuscular HGB Conc 35.3 % (32.0-36.0); Mean Corpuscular Volume 93.5 fL (80.0-100.0); Mean Platelet Volume 8.9 fL (7.0-11.0); Mono # (Auto) 0.8 th/mm3 (0.0-0.9); Mono % (Auto) 10.8 % (0.0-8.0); Neut # (Auto) 5.1 th/mm3 (1.8-7.7); Neut % (Auto) 72.4 % (16.0-70.0); Platelet Count 168 th/mm3 (150-450); Red Blood Count 3.06 mil/mm3 (4.50-5.90); Red Cell Distribution Width 12.4 % (11.6-17.2)
[2018-03-30] MEDS: Oral Hygiene Kit OROPHARYNG SCH ×3 (07:39→16:36)
[2018-03-30] MEDS: Chlorhexidine Gluconate 2% 1 Pack (2 Cloths) TOPICAL SCH (07:39)
[2018-03-30] MEDS: Sod Chloride 0.9% Inj 1,000 ML IV.CONT SCH (07:39)
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
[2018-03-30] MEDS: Dexmedetomidine Inj 200 MCG in Sodium Chlor 0.9% Inj 48 ML IV.CONT PRN ×5 (08:24→20:11)
[2018-03-30] MEDS: Enoxaparin Inj 40 MG/0.4 ML Syringe SQ SCH (08:24)
[2018-03-30] MEDS: Thiamine Inj 100 MG in Sodium Chlor 0.9% Inj 100 ML IV.SIG SCH (09:00)
[2018-03-30 09:32] LABS: ABG Base Excess -1.5 mmol/L (-2-2); ABG PCO2 35 mmHg (38-42); ABG PO2 91 mmHg (61-120)
[2018-03-30] MEDS: Chlorhexidine 0.12% Oral Kit 15 ML UDC OROPHARYNG SCH ×2 (09:45→21:44)
[2018-03-30] MEDS: QUEtiapine 100 MG Tablet PO SCH ×2 (09:45→22:14)
[2018-03-30] MEDS: Senna/Docusate Sodium 8.6/50 MG Tablet PO SCH ×2 (09:45→22:15)
[2018-03-30] MEDS: Famotidine 20 MG Tablet PO SCH ×2 (09:45→22:14)
--- NOTE | 2018-03-30 10:15 | P.DIET ---
Nutritional Evaluation Type of nutrition evaluation: follow-up Screening comments: NPO ALERTPT NPO X 4-DAYS Subjective Subjective Comments: NPO Objective - Diagnosis Head injury - Objective [place] body weight: 67 kg % IBW: 118 Body Weight Used for Calculations: Actual (Admission weight ( 80kg)) Energy Needs - Lower Range (kCal/kg): 22 Energy Needs - Upper Range (kCal/kg): 28 Lower Limit kCal/kg (kCals): 1,760 Upper Limit kCal/kg (kCals): 2,240 Lower Limit Protein Factor (Grams per Kg): 1.2 Upper Limit Protein Factor (Grams per Kg): 1.5 Lower Protein Needs (Protein): 96 Upper Protein Needs (Protein): 120 Dietitian Reviewed in Medical Record: Curent medications, Intake & Output, Labs , Medical history Diet Order: NPO Assessment Assessment: Pt continues at nutritional risk r/t diagnosis and NPO x 4-days. Extubated 03/29. Dietitian to Monitor NPO status and diet advancement. Recommendations: 1. NPO x 4-days 2. Pt Extubated 03/29/19 3. Dietitian to Monitor NPO status and diet advancement
--- NOTE | 2018-03-30 12:53 | P.PNNS ---
Subjective Interval history: March 30, 2018 Apparently the patient has been quite agitated and confused overnight. There is some question of alcohol withdrawal and he has been sedated per protocol. He remained sedated and lethargic. He was extubated yesterday. Physical Exam Vital signs: Vital Signs 03/29/18 13:00 03/29/18 13:14 03/29/18 13:23 Temperature Pulse Rate 80 78 Respiratory Rate 48 H 48 H Blood Pressure 112/57 L 130/71 Pulse Oximetry 93 L 96 03/29/18 14:00 03/29/18 15:00 03/29/18 15:15 Temperature Pulse Rate 81 76 80 Respiratory Rate 87 H 18 14 Blood Pressure 131/64 143/85 H Pulse Oximetry 97 99 03/29/18 16:00 03/29/18 17:00 03/29/18 18:00 Temperature Pulse Rate 84 84 97 H Respiratory Rate 18 16 23 Blood Pressure 156/80 H 161/85 H 164/80 H Pulse Oximetry 97 98 100 03/29/18 19:00 03/29/18 20:00 03/29/18 20:02 Temperature 99.2 F Pulse Rate 83 100 H 95 H Respiratory Rate 19 25 H 27 H Blood Pressure 162/77 H 168/105 H 174/89 H Pulse Oximetry 98 99 98 03/29/18 20:08 03/29/18 21:00 03/29/18 21:03 Temperature Pulse Rate 83 156 H 126 H Respiratory Rate 18 34 H 33 H Blood Pressure 218/167 H 219/95 H Pulse Oximetry 100 100 03/29/18 21:35 03/29/18 21:42 03/29/18 22:00 Temperature Pulse Rate 133 H 101 H 104 H Respiratory Rate 24 14 Blood Pressure 192/85 H 155/72 H 155/72 H Pulse Oximetry 95 100 100 03/29/18 22:53 03/29/18 23:00 03/30/18 00:00 Temperature Pulse Rate 98 H 87 86 Respiratory Rate 18 17 17 Blood Pressure 144/83 H 133/81 Pulse Oximetry 98 100 100 03/30/18 00:11 03/30/18 01:00 03/30/18 01:40 Temperature Pulse Rate 80 79 82 Respiratory Rate 13 15 17 Blood Pressure 138/79 149/81 H 160/83 H Pulse Oximetry 100 100 100 03/30/18 02:00 03/30/18 02:40 03/30/18 03:00 Temperature Pulse Rate 81 112 H 90 Respiratory Rate 17 43 H 20 Blood Pressure 183/88 H Pulse Oximetry 100 100 98 03/30/18 03:08 03/30/18 03:25 03/30/18 03:40 Temperature Pulse Rate 82 83 86 Respiratory Rate 18 18 21 Blood Pressure 174/91 H 172/83 H Pulse Oximetry 99 100 03/30/18 04:00 03/30/18 04:03 03/30/18 04:16 Temperature 98.7 F Pulse Rate 89 88 90 Respiratory Rate 20 22 21 Blood Pressure 186/97 H 183/86 H Pulse Oximetry 98 98 97 03/30/18 04:31 03/30/18 04:46 03/30/18 05:00 Temperature Pulse Rate 126 H 115 H 129 H Respiratory Rate 28 H 30 H 28 H Blood Pressure 181/84 H 183/83 H Pulse Oximetry 97 98 98 03/30/18 05:01 03/30/18 05:16 03/30/18 05:31 Temperature Pulse Rate 120 H 114 H 99 H Respiratory Rate 26 H 28 H 25 H Blood Pressure 188/86 H 180/84 H 175/76 H Pulse Oximetry 98 99 100 03/30/18 05:46 03/30/18 06:00 03/30/18 06:01 Temperature Pulse Rate 136 H 146 H 146 H Respiratory Rate 33 H 39 H 37 H Blood Pressure 190/88 H 192/82 H Pulse Oximetry 98 97 98 03/30/18 06:03 03/30/18 07:00 03/30/18 07:35 Temperature Pulse Rate 130 H 109 H Respiratory Rate 35 H 28 H Blood Pressure 178/75 H 197/80 H Pulse Oximetry 97 100 99 03/30/18 07:36 03/30/18 08:00 03/30/18 08:29 Temperature 100.2 F H Pulse Rate 115 H 107 H 100 H Respiratory Rate 26 H 27 H Blood Pressure 208/86 H 191/81 H Pulse Oximetry 100 100 03/30/18 09:00 03/30/18 09:25 03/30/18 09:30 Temperature Pulse Rate 118 H 100 H 100 H Respiratory Rate 35 H 26 H 24 Blood Pressure 164/80 H 161/82 H Pulse Oximetry 100 100 100 03/30/18 09:53 03/30/18 10:00 03/30/18 10:09 Temperature Pulse Rate 90 93 H 89 Respiratory Rate 26 H 28 H Blood Pressure 142/69 H Pulse Oximetry 100 100 03/30/18 10:30 03/30/18 11:00 Temperature Pulse Rate 91 H 91 H Respiratory Rate 28 H 25 H Blood Pressure 139/64 118/67 Pulse Oximetry 100 100 Intake & Output 03/29/18 03/30/18 03/30/18 18:59 06:59 18:59 Intake Total 1116.2 / 1116.2 306 / 306 605 / 605 Output Total 1000 / 1000 2510 / 2510 Balance 116.2 / 116.2 -2204 / -2204 605 / 605 Weight 84.4 kg Intake: IV 1116.2 / 1116.2 306 / 306 605 / 605 Precedex Inj 200 MCG In NS Inj 50 / 50 48 ML @ 0.2 MCG/KG/HR 4.44 mls/ hr IV.CONT TITRATE PRN Rx#: [id number] NS Inj 1,000 ML @ 40 mls/hr IV. 500 / 500 CONT .Q24H CHELY Rx#:[id number] Ofirmev Inj 1,000 mg In 100 ml 100 / 100 @ 400 mls/hr IV.SIG Q6H PRN Rx# :[id number] MVI-12 Inj 10 ML Thiamine Inj 511.2 / 511.2 100 MG Folvite Inj 1 MG In NS Inj 500 ML @ 127.8 mls/hr IV. SIG DAILY CHELY Rx#:[id number] KCl 20 mEq Premix Inj 20 meq In 200 / 200 100 ml @ 50 mls/hr IV.SIG Q2H PRN Rx#:[id number] Thiamine Inj 100 MG In NS Inj 101 / 101 100 ML @ 100 mls/hr IV.SIG DAILY CHELY Rx#:[id number] fentaNYL 10 mcg/mL Premix Drip 250 / 250 2,500 mcg In 250 ml @ 50 MCG/HR 5 mls/hr IV.SIG TITRATE PRN Rx #:[id number] Keppra Inj 500 MG In NS Inj 100 105 / 105 105 / 105 105 / 105 ML @ 400 mls/hr IV.SIG Q12H CHELY Rx#:[id number] Output: Urine Amount (Catheter) 1000 / 1000 2500 / 2500 Indwelling Urethral Catheter 1000 / 1000 2500 / 2500 Wound Drainage # 1 Left Head - Routine Neurological Exam March 30, 2018 The patient is lying in bed as I enter the room. He is lethargic. He does not arouse to voice. Neurological examination he opens his eyes to noxious stimuli. He is not following commands. Speech is at best garbled. His pupils are equal and reactive to light. Corneal reflexes are present bilaterally. Gag reflex is present. He is moving all 4 extremities spontaneously and to noxious stimuli. There were no focal motor nor sensory deficits. He remains in bed with all 4 extremities restrained. The cranial wound is clear. The subgaleal drain has been discontinued. A CT scan of the head done without contrast yesterday reveals postoperative changes with a stable left frontal hemorrhagic contusion or intracerebral hemorrhage. There is some minimal surrounding edema without mass-effect. There are post craniotomy changes. There is no sign of hydrocephalus. There is no pneumocephalus. 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 Code(s): S02.91XB - Unspecified fracture of skull, initial encounter for open fracture; S06.9X9A - Unspecified intracranial injury with loss of consciousness of unspecified duration, initial encounter Status: Acute Qualifiers: Encounter type: initial encounter Qualified Code(s): S02.91XB - Unspecified fracture of skull, initial encounter for open fracture; S06.9X9A - Unspecified intracranial injury with loss of consciousness of unspecified duration, initial encounter - Plan March 27, 2018 At this point the patient can be weaned from the ventilator as tolerated and extubated when deemed appropriate by the trauma team. He certainly require aggressive rehabilitation and should be mobilized when able. I would continue the present management. The patient will be managed by the trauma service as per TBI guidelines and protocol. I would continue her Keppra antiseizure prophylaxis for 7 days and if no seizures postoperatively I would discontinue the Keppra. I would begin VTE pharmacological prophylaxis, if it has not already been initiated. I discussed his clinical situation and hospital course with his significant other at the bedside. Neurosurgery will follow. March 28, 2018 The patient is essentially stable one day following a left frontal parietal craniotomy for elevation of a depressed skull fracture and repair of a scalp laceration. The critical care service is attempting to wean the patient from the ventilator slowly. We will continue the present management and the patient will require mobilization and an extensive course of rehabilitation. Neurosurgery will follow. March 29, 2018 The patient is stable postoperative day #2 status post left frontal parietal craniotomy for elevation of a depressed comminuted skull fracture with evacuation of a small epidural hematoma and repair of a scalp laceration. Neurologically has improved. He appears awake and alert. He is being weaned from the ventilator and should be extubated shortly. The patient needs to be mobilized and we acquire speech therapy, physical therapy, and occupational therapy, and rehabilitation. We will continue the present management as per the trauma service. However, at this point the patient be transferred to the neurosurgery service and critical care can be insulted to manage the patient. Neurosurgery will follow. March 30, 2018 The patient is stable postoperative day #3 status post left frontal parietal craniotomy for elevation of a depressed, comminuted skull fracture with evacuation of a small epidural hematoma and repair of a scalp laceration. He has been extubated and neurologically apparently is stable but has been sedated due to agitation, confusion, and possible alcohol withdrawal. At this point the patient appears to be oversedated and I would there is to hold sedation and use Precedex in an as-needed basis for sedation. This is apparently being done. Otherwise I will continue the present management. The patient certainly require mobilization and rehabilitation as his condition improves neurologically. I discussed this all with the patient's mother at the bedside. She understands and is agreeable. Neurosurgery will follow.
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
[2018-03-30 21:30] LABS: Magnesium 1.7 mg/dL (1.5-2.5); Potassium 3.6 meq/L (3.5-5.1)
[2018-03-30] MEDS: Dexmedetomidine Inj 1,000 MCG in Sodium Chlor 0.9% Inj 240 ML IV.CONT PRN (21:53)
[2018-03-30] MEDS: levETIRAcetam 500 MG Tablet PO SCH (22:14)
[2018-03-31] MEDS: Oral Hygiene Kit OROPHARYNG SCH ×5 (03:40→23:25)
[2018-03-31] MEDS: Sod Chloride 0.9% Inj 1,000 ML IV.CONT SCH (03:41)
[2018-03-31] MEDS: Chlorhexidine Gluconate 2% 1 Pack (2 Cloths) TOPICAL SCH (03:42)
[2018-03-31 04:12] LABS: Baso % (Auto) 0.6 % (0.0-2.0); Eos # (Auto) 0.1 th/mm3 (0.0-0.4); Eos % (Auto) 1.6 % (0.0-4.0); Hematocrit 29.5 % (39.0-51.0); Hemoglobin 10.6 gm/dL (13.0-17.0); Lymph # (Auto) 0.9 th/mm3 (1.0-4.8); Lymph % (Auto) 15.2 % (9.0-44.0); Mean Corpuscular HGB Conc 35.9 % (32.0-36.0); Mean Corpuscular Hemoglobin 33.2 pg (27.0-34.0); Mean Corpuscular Volume 92.4 fL (80.0-100.0); Mean Platelet Volume 7.7 fL (7.0-11.0); Mono # (Auto) 0.9 th/mm3 (0.0-0.9); Mono % (Auto) 14.2 % (0.0-8.0); Neut # (Auto) 4.3 th/mm3 (1.8-7.7); Neut % (Auto) 68.4 % (16.0-70.0); Platelet Count 216 th/mm3 (150-450); Red Blood Count 3.19 mil/mm3 (4.50-5.90); Red Cell Distribution Width 12.5 % (11.6-17.2); White Blood Count 6.3 th/mm3 (4.0-11.0)
[2018-03-31 04:36] LABS: Albumin 3.1 g/dL (3.4-5.0); Anion Gap 12 meq/L (5-15); Aspartate Aminotransferase 124 U/L (15-37); Blood Urea Nitrogen 4 mg/dL (7-18); Calcium 8.5 mg/dL (8.5-10.1); Carbon Dioxide 23.6 meq/L (21.0-32.0); Chloride 104 meq/L (98-107); Glomerular Filtration Rate Greater Than 89 mL/min (>89); Glucose,Random 109 mg/dL (74-106); Potassium 3.7 meq/L (3.5-5.1); Sodium 140 meq/L (136-145)
[2018-03-31 04:39] LABS: Alanine Aminotransferase 49 U/L (12-78); Alkaline Phosphatase 54 U/L (45-117); Total Protein 7.1 g/dL (6.4-8.2)
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
[2018-03-31] MEDS: Dexmedetomidine Inj 1,000 MCG in Sodium Chlor 0.9% Inj 240 ML IV.CONT PRN (07:57)
[2018-03-31] MEDS: Chlorhexidine 0.12% Oral Kit 15 ML UDC OROPHARYNG SCH ×2 (07:58→20:03)
--- NOTE | 2018-03-31 08:20 | P.PNNPSY ---
- Behavior Moderate: Impulsive/agitated - Cognitive Severe: Cognitive, Attention/concentration, Confused/orientation, Insight/ awareness, Judgment/problem solving, Memory - Psychosocial Intact: Psychosocial, Family/other adjustment, Realistic expectation - Progress Notes/Response to Treatment Contents of Sessions: Adjustment, Level of consciousness Time with Patient: 30 minutes Premorbid Psychological Status: Premorbid Cognitive, Emotional and Behavioral Status: Stable. The patient has high school years of education and a solid work history prior to this injury. The patient has no prior psychiatric difficulties, as described above. Substance abuse history includes ETOH. Behavioral Reactions of Patient and Family/Support System: Stable. The patients family is experiencing ongoing issues of adjustment given the nature of the injury, and this aspect of recovery will require ongoing monitoring. Emotional/Behavioral Status of Patient and Family/Support System: Stable. Pertinent issues, if appropriate to this patients clinical care, are described in detail above. Maximizing Acute Care Outcome: It is recommended that the patient be monitored for emergent behavioral impulsivity as the medical condition evolves. This patients neuropathological challenges may limit rehabilitation potential going forward, and these challenges will require specialized therapeutic skills to maximize outcome. Additionally, the patients family is experiencing ongoing issues of adjustment given the traumatic nature of the injury, and they may benefit from ongoing psychological assistance. At this point in the recovery process, the patient does not have cognitive capacity as the patient is unable to understand a situation and its likely consequences, nor is the patient able to manipulate information rationally. Cognitive capacity will be assessed throughout the recovery process. Anticipated Problems: Ongoing areas of concern will include behavioral impulsivity, lack of insight and judgment, which is expected to improve with time and treatment. Treatment Plan: This clinician will continue to follow with you throughout the course of this patients critical care treatment, and I will be available to meet with the patients family/support system to facilitate their understanding and the ongoing care of their family member. The goals of neuropsychological intervention shall be both educational and supportive to the family/support system as is deemed clinically appropriate. [place] COG Scale: Level IV Disinhibition Score: 35.00 Aggression Score: 28.00 Lability Score: 18.66 Agitated Behavior Total Score: 29 Impression: 48 year old [place]p [place] [facility] [place] Progress Note Narrative: PTD 5. The patient is demonstrating significant agitation, with recent ABS of 29 (35,28,18.7) which indicates moderate levels of agitation overall and significant disinhibition. Scores over 21 are clinically significant. [facility] protocol has been d/c'ed, which I would concur. I would suggest that his agitation be managed first with starting Valproic Acid 250 TID, and consider also adding low dose of Seroquel 25/25 and 50HS, with the goal of getting the agitation scores below 21 and will help normalize his sleep/wake cycle. We have had good success with this medication combination, tweaking along the way, and I would be happy to assist but I need to be empowered to do so. Otherwise, I will follow. - Diagnosis (1) Major neurocognitive disorder as late effect of traumatic brain injury with behavioral disturbance Status: Acute
[2018-03-31] MEDS: Senna/Docusate Sodium 8.6/50 MG Tablet PO SCH ×2 (10:03→20:19)
--- NOTE | 2018-03-31 10:11 | P.PNNS ---
Subjective Interval history: March 31, 2018 The patient has been stable overnight. He has been sedated with Seroquel as well as Precedex he still remains minimally responsive, but when the sedation is held he is agitated and not really following commands. Physical Exam Vital signs: Vital Signs 03/30/18 10:09 03/30/18 10:30 03/30/18 11:00 Temperature Pulse Rate 89 91 H 91 H Respiratory Rate 28 H 28 H 25 H Blood Pressure 139/64 118/67 Pulse Oximetry 100 100 100 03/30/18 11:30 03/30/18 12:00 03/30/18 12:30 Temperature 97.7 F Pulse Rate 87 83 84 Respiratory Rate 28 H 22 31 H Blood Pressure 127/71 128/78 125/78 Pulse Oximetry 100 100 100 03/30/18 13:00 03/30/18 13:30 03/30/18 14:00 Temperature Pulse Rate 96 H 83 100 H Respiratory Rate 28 H 27 H 26 H Blood Pressure 128/76 134/84 138/95 H Pulse Oximetry 100 100 96 03/30/18 14:30 03/30/18 15:00 03/30/18 15:30 Temperature Pulse Rate 98 H 83 94 H Respiratory Rate 30 H 34 H 28 H Blood Pressure 133/75 163/80 H 150/71 H Pulse Oximetry 91 L 100 92 L 03/30/18 16:00 03/30/18 16:30 03/30/18 17:00 Temperature 99.9 F H Pulse Rate 92 H 83 93 H Respiratory Rate 29 H 30 H 30 H Blood Pressure 163/82 H 156/81 H 179/95 H Pulse Oximetry 99 100 100 03/30/18 17:10 03/30/18 17:30 03/30/18 18:00 Temperature Pulse Rate 86 85 81 Respiratory Rate 14 27 H 22 Blood Pressure 173/97 H 181/93 H Pulse Oximetry 98 100 03/30/18 18:30 03/30/18 19:00 03/30/18 19:12 Temperature Pulse Rate 80 92 H 83 Respiratory Rate 28 H 29 H 22 Blood Pressure 151/86 H 174/82 H 161/76 H Pulse Oximetry 100 100 100 03/30/18 20:00 03/30/18 20:03 03/30/18 20:04 Temperature Pulse Rate 69 86 79 Respiratory Rate 23 27 H 21 Blood Pressure 173/110 H 188/109 H 180/104 H Pulse Oximetry 100 100 100 03/30/18 20:07 03/30/18 20:16 03/30/18 21:00 Temperature Pulse Rate 74 83 94 H Respiratory Rate 22 27 H 45 H Blood Pressure 165/95 H 159/82 H Pulse Oximetry 100 100 100 03/30/18 22:00 03/30/18 22:05 03/30/18 23:00 Temperature Pulse Rate 93 H 91 H 102 H Respiratory Rate 22 19 48 H Blood Pressure 212/115 H 148/85 H Pulse Oximetry 100 99 99 03/30/18 23:30 03/31/18 00:00 03/31/18 00:03 Temperature Pulse Rate 86 100 H 89 Respiratory Rate 25 H 35 H 28 H Blood Pressure 175/103 H 183/102 H 194/100 H Pulse Oximetry 100 99 99 03/31/18 00:40 03/31/18 01:00 03/31/18 02:00 Temperature Pulse Rate 71 92 H 86 Respiratory Rate 23 32 H 29 H Blood Pressure 173/99 H Pulse Oximetry 99 100 100 03/31/18 02:01 03/31/18 03:00 03/31/18 03:11 Temperature Pulse Rate 90 80 87 Respiratory Rate 31 H 29 H 37 H Blood Pressure 167/101 H 157/85 H Pulse Oximetry 100 99 99 03/31/18 04:00 03/31/18 05:00 03/31/18 05:26 Temperature 98.9 F Pulse Rate 87 70 83 Respiratory Rate 33 H 33 H 33 H Blood Pressure 157/85 H 144/79 H Pulse Oximetry 99 99 100 03/31/18 05:59 03/31/18 06:00 03/31/18 07:00 Temperature Pulse Rate 83 72 70 Respiratory Rate 20 24 Blood Pressure 144/79 H 134/89 Pulse Oximetry 98 98 03/31/18 08:00 03/31/18 08:39 03/31/18 09:00 Temperature 97.4 F L Pulse Rate 67 66 Respiratory Rate 27 H 21 Blood Pressure 133/89 119/75 Pulse Oximetry 99 97 97 Intake & Output 03/30/18 03/31/18 03/31/18 18:59 06:59 18:59 Intake Total 1056 / 1056 1050 / 1050 250 / 250 Output Total 3335 / 3335 400 / 400 Balance -2279 / -2279 650 / 650 250 / 250 Weight 86.1 kg Intake: IV 1056 / 1056 1050 / 1050 250 / 250 Precedex Inj 1,000 MCG In NS 250 / 250 Inj 240 ML @ 0.2 MCG/KG/HR 4.44 mls/hr IV.CONT TITRATE PRN Rx# :[id number] Precedex Inj 200 MCG In NS Inj 150 / 150 50 / 50 48 ML @ 0.2 MCG/KG/HR 4.44 mls/ hr IV.CONT TITRATE PRN Rx#: [id number] Versed Inj 100 mg In 100 ml @ 2 50 / 50 MG/HR 2 mls/hr IV.CONT TITRATE PRN Rx#:[id number] NS Inj 1,000 ML @ 40 mls/hr IV. 1000 / 1000 CONT .Q24H CHELY Rx#:[id number] KCl 20 mEq Premix Inj 20 meq In 400 / 400 100 ml @ 50 mls/hr IV.SIG Q2H PRN Rx#:[id number] Thiamine Inj 100 MG In NS Inj 101 / 101 100 ML @ 100 mls/hr IV.SIG DAILY CHELY Rx#:[id number] fentaNYL 10 mcg/mL Premix Drip 250 / 250 2,500 mcg In 250 ml @ 50 MCG/HR 5 mls/hr IV.SIG TITRATE PRN Rx #:[id number] Keppra Inj 500 MG In NS Inj 100 105 / 105 ML @ 400 mls/hr IV.SIG Q12H CHELY Rx#:[id number] Output: Urine 400 / 400 Urine Amount (Catheter) 3325 / 3325 Indwelling Urethral Catheter 3325 / 3325 Wound Drainage # 1 Left Head Other: # Incontinent Voids 2 - Routine Neurological Exam March 31, 2018 patient is lying in bed. He is restrained. On neurological examination he opens his eyes to verbal and noxious stimuli. His speech is garbled. He is not following commands. His pupils were equally round and reactive to light. His gaze is conjugate. Corneal reflexes are present bilaterally. Gag reflex is present. Best motor response finds him to move all 4 extremities spontaneously and withdraws appropriately to noxious stimuli. The wound is clear. There is no erythema nor drainage. - Urinary Catheter Management Indwelling Urethral Catheter Cath placed during this visit: yes, but has since been removed by the nurse Reason for continuing: Decision to DC catheter Insertion date: 03/26/18 Removal date: 03/30/18 Removal time: 18:00 Assessment and Plan - Assessment (1) Open traumatic brain injury with depressed skull fracture with loss of consciousness Code(s): S02.91XB - Unspecified fracture of skull, initial encounter for open fracture; S06.9X9A - Unspecified intracranial injury with loss of consciousness of unspecified duration, initial encounter Status: Acute Qualifiers: Encounter type: initial encounter Qualified Code(s): S02.91XB - Unspecified fracture of skull, initial encounter for open fracture; S06.9X9A - Unspecified intracranial injury with loss of consciousness of unspecified duration, initial encounter - Plan March 27, 2018 At this point the patient can be weaned from the ventilator as tolerated and extubated when deemed appropriate by the trauma team. He certainly require aggressive rehabilitation and should be mobilized when able. I would continue the present management. The patient will be managed by the trauma service as per TBI guidelines and protocol. I would continue her Keppra antiseizure prophylaxis for 7 days and if no seizures postoperatively I would discontinue the Keppra. I would begin VTE pharmacological prophylaxis, if it has not already been initiated. I discussed his clinical situation and hospital course with his significant other at the bedside. Neurosurgery will follow. March 28, 2018 The patient is essentially stable one day following a left frontal parietal craniotomy for elevation of a depressed skull fracture and repair of a scalp laceration. The critical care service is attempting to wean the patient from the ventilator slowly. We will continue the present management and the patient will require mobilization and an extensive course of rehabilitation. Neurosurgery will follow. March 29, 2018 The patient is stable postoperative day #2 status post left frontal parietal craniotomy for elevation of a depressed comminuted skull fracture with evacuation of a small epidural hematoma and repair of a scalp laceration. Neurologically has improved. He appears awake and alert. He is being weaned from the ventilator and should be extubated shortly. The patient needs to be mobilized and we acquire speech therapy, physical therapy, and occupational therapy, and rehabilitation. We will continue the present management as per the trauma service. However, at this point the patient be transferred to the neurosurgery service and critical care can be insulted to manage the patient. Neurosurgery will follow. March 30, 2018 The patient is stable postoperative day #3 status post left frontal parietal craniotomy for elevation of a depressed, comminuted skull fracture with evacuation of a small epidural hematoma and repair of a scalp laceration. He has been extubated and neurologically apparently is stable but has been sedated due to agitation, confusion, and possible alcohol withdrawal. At this point the patient appears to be oversedated and I would there is to hold sedation and use Precedex in an as-needed basis for sedation. This is apparently being done. Otherwise I will continue the present management. The patient certainly require mobilization and rehabilitation as his condition improves neurologically. I discussed this all with the patient's mother at the bedside. She understands and is agreeable. Neurosurgery will follow. March 31, 2018 The patient is stable postoperative day #4 status post left frontal parietal craniotomy for elevation of an open depressed skull fracture and repair of a scalp laceration. The patient still appears to be somewhat oversedated. 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 I would wean the pharmacological restraint and pursue physical restraint and even a Melissa bed if needed. I discussed this with her critical care and we are in agreement. We will continue the present management. Neurosurgery will follow.
[2018-03-31] MEDS: Enoxaparin Inj 40 MG/0.4 ML Syringe SQ SCH (10:31)
[2018-03-31] MEDS: levETIRAcetam 500 MG Tablet PO SCH ×2 (10:34→20:19)
[2018-03-31] MEDS: Famotidine 20 MG Tablet PO SCH ×2 (10:34→20:19)
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
[2018-03-31] MEDS: QUEtiapine 100 MG Tablet PO SCH (12:00)
[2018-03-31] MEDS ORDERED: QUEtiapine 25 MG Tablet PO PRN (16:35)
[2018-03-31] MEDS ORDERED: QUEtiapine 25 MG Tablet PO SCH (21:00)
[2018-04-01 05:45] LABS: Anion Gap 9 meq/L (5-15); Blood Urea Nitrogen 7 mg/dL (7-18); Calcium 8.5 mg/dL (8.5-10.1); Carbon Dioxide 27.8 meq/L (21.0-32.0); Chloride 104 meq/L (98-107); Glomerular Filtration Rate Greater Than 89 mL/min (>89); Glucose,Random 133 mg/dL (74-106); Sodium 141 meq/L (136-145)
[2018-04-01] MEDS: Oral Hygiene Kit OROPHARYNG SCH ×2 (06:46→12:16)
[2018-04-01] MEDS: Potassium Chlor 20 mEq Premix 20 MEQ/100 ML PIGGYBACK IV.SIG PRN (06:51)
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
[2018-04-01] MEDS: Famotidine 20 MG Tablet PO SCH (10:09)
[2018-04-01] MEDS: levETIRAcetam 500 MG Tablet PO SCH ×2 (10:09→12:17)
[2018-04-01] MEDS: Enoxaparin Inj 40 MG/0.4 ML Syringe SQ SCH (10:10)
[2018-04-01] MEDS: Senna/Docusate Sodium 8.6/50 MG Tablet PO SCH (10:10)
[2018-04-01] MEDS: Chlorhexidine 0.12% Oral Kit 15 ML UDC OROPHARYNG SCH (10:11)
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
[2018-04-01 11:54] VITALS: BP 129/80; PULSE 92; RESP 22; TEMP 98.3; O2SAT 95
--- NOTE | 2018-04-01 12:57 | P.PNNS ---
Subjective Interval history: Doing well, awake, oriented, alert now that all sedation has been stopped Physical Exam Vital signs: Vital Signs 03/31/18 13:00 03/31/18 14:00 03/31/18 15:00 Temperature Pulse Rate 96 H 112 H 120 H Respiratory Rate 24 19 24 Blood Pressure 122/68 126/82 125/73 Pulse Oximetry 99 99 98 03/31/18 16:00 03/31/18 17:00 03/31/18 18:00 Temperature 98.8 F Pulse Rate 113 H 106 H 115 H Respiratory Rate 18 18 22 Blood Pressure 141/85 H 131/60 141/86 H Pulse Oximetry 100 94 L 97 03/31/18 19:00 03/31/18 20:00 03/31/18 20:40 Temperature 99.3 F Pulse Rate 110 H 109 H Respiratory Rate 21 25 H Blood Pressure 131/69 138/82 Pulse Oximetry 97 98 100 03/31/18 21:42 03/31/18 21:44 03/31/18 22:00 Temperature Pulse Rate 110 H 103 H 104 H Respiratory Rate 21 25 H Blood Pressure 127/69 132/73 Pulse Oximetry 97 03/31/18 22:51 03/31/18 23:10 03/31/18 23:11 Temperature Pulse Rate 101 H Respiratory Rate 14 Blood Pressure 144/87 H Pulse Oximetry 97 99 04/01/18 00:00 04/01/18 01:00 04/01/18 02:00 Temperature 98.7 F Pulse Rate 119 H 108 H 109 H Respiratory Rate 45 H 9 L 41 H Blood Pressure 135/104 H 123/82 Pulse Oximetry 98 94 L 97 04/01/18 03:00 04/01/18 03:13 04/01/18 04:00 Temperature 98.8 F Pulse Rate 91 H 89 93 H Respiratory Rate 21 20 21 Blood Pressure 112/64 112/64 113/67 Pulse Oximetry 96 96 97 04/01/18 05:00 04/01/18 05:09 04/01/18 05:47 Temperature Pulse Rate 81 90 84 Respiratory Rate 18 20 Blood Pressure 113/67 122/81 Pulse Oximetry 96 95 95 04/01/18 06:00 04/01/18 06:47 04/01/18 07:00 Temperature Pulse Rate 78 75 71 Respiratory Rate 16 18 19 Blood Pressure 127/79 127/79 Pulse Oximetry 93 L 97 94 L 04/01/18 08:00 04/01/18 08:04 04/01/18 09:00 Temperature 98.3 F Pulse Rate 72 71 68 Respiratory Rate 18 17 Blood Pressure Pulse Oximetry 100 96 95 04/01/18 09:44 04/01/18 10:00 Temperature Pulse Rate 91 H 92 H Respiratory Rate 13 22 Blood Pressure 129/80 Pulse Oximetry Intake & Output 03/31/18 04/01/18 04/01/18 18:59 06:59 18:59 Intake Total 1275 / 1275 1400 / 1400 Output Total 1300 / 1300 Balance -25 / -25 1400 / 1400 Weight 83.2 kg Intake: IV 795 / 795 Precedex Inj 1,000 MCG In NS 250 / 250 Inj 240 ML @ 0.2 MCG/KG/HR 4.44 mls/hr IV.CONT TITRATE PRN Rx# :[id number] NS Inj 1,000 ML @ 40 mls/hr IV. 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 Code(s): S02.91XB - Unspecified fracture of skull, initial encounter for open fracture; S06.9X9A - Unspecified intracranial injury with loss of consciousness of unspecified duration, initial encounter Status: Acute Qualifiers: Encounter type: initial encounter Qualified Code(s): S02.91XB - Unspecified fracture of skull, initial encounter for open fracture; S06.9X9A - Unspecified intracranial injury with loss of consciousness of unspecified duration, initial encounter - Plan March 27, 2018 At this point the patient can be weaned from the ventilator as tolerated and extubated when deemed appropriate by the trauma team. He certainly require aggressive rehabilitation and should be mobilized when able. I would continue the present management. The patient will be managed by the trauma service as per TBI guidelines and protocol. I would continue her Keppra antiseizure prophylaxis for 7 days and if no seizures postoperatively I would discontinue the Keppra. I would begin VTE pharmacological prophylaxis, if it has not already been initiated. I discussed his clinical situation and hospital course with his significant other at the bedside. Neurosurgery will follow. March 28, 2018 The patient is essentially stable one day following a left frontal parietal craniotomy for elevation of a depressed skull fracture and repair of a scalp laceration. The critical care service is attempting to wean the patient from the ventilator slowly. We will continue the present management and the patient will require mobilization and an extensive course of rehabilitation. Neurosurgery will follow. March 29, 2018 The patient is stable postoperative day #2 status post left frontal parietal craniotomy for elevation of a depressed comminuted skull fracture with evacuation of a small epidural hematoma and repair of a scalp laceration. Neurologically has improved. He appears awake and alert. He is being weaned from the ventilator and should be extubated shortly. The patient needs to be mobilized and we acquire speech therapy, physical therapy, and occupational therapy, and rehabilitation. We will continue the present management as per the trauma service. However, at this point the patient be transferred to the neurosurgery service and critical care can be insulted to manage the patient. Neurosurgery will follow. March 30, 2018 The patient is stable postoperative day #3 status post left frontal parietal craniotomy for elevation of a depressed, comminuted skull fracture with evacuation of a small epidural hematoma and repair of a scalp laceration. He has been extubated and neurologically apparently is stable but has been sedated due to agitation, confusion, and possible alcohol withdrawal. At this point the patient appears to be oversedated and I would there is to hold sedation and use Precedex in an as-needed basis for sedation. This is apparently being done. Otherwise I will continue the present management. The patient certainly require mobilization and rehabilitation as his condition improves neurologically. I discussed this all with the patient's mother at the bedside. She understands and is agreeable. Neurosurgery will follow. March 31, 2018 The patient is stable postoperative day #4 status post left frontal parietal craniotomy for elevation of an open depressed skull fracture and repair of a scalp laceration. The patient still appears to be somewhat oversedated. 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 I would wean the pharmacological restraint and pursue physical restraint and even a Melissa bed if needed. I discussed this with her critical care and we are in agreement. We will continue the present management. Neurosurgery will follow. 04/01/2018 Much more awake and alert. Participated with PT and cleared for home discharge. Ambulating around unit. Fully awake and oriented. He is doing well and pod#5. I reviewed his CT from pod#2-3 and given his marked improvement in exam, I concur that he is clear to go home. We will plan to see him back in clinic on 04/14/17 with rossy out that day at 10am. He is to keep the incision clean. Percocet ordered for homegoing pain med with transition to Fioricet-- appreciate the help of Dr. Segal, ICU attending.
== END 2018-04-01 13:05 | disposition home or self-care (01) ==
LOC: NEPI 17:38 → MERGE 18:02 → EDBD 18:02 → NEDA 18:02 → N03 18:15
PROVIDERS: ADMIT Surgery; ATTEND Surgery